=== PATIENT | male | born 1980 | race Caucasian/White ===

== ENCOUNTER 2016-11-18 15:54 | Emergency (ER) | payer OTHER ==
[~2016-11-18] VITALS: Ht 185.4 cm; Wt 70.5 kg
[2016-11-18 16:03] VITALS: BP 146/82; PULSE 74; RESP 16; O2SAT 100
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
[2016-11-18] MEDS ORDERED: TdaP Vaccine 0.5 mL Inj IM ONE (16:35)
[2016-11-18] MEDS ORDERED: HYDROcodone-APAP 5-325 mg Tablet PO ONE (16:35)
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
[2016-11-18] MEDS ORDERED: _oxyCODONE/APAP 5-325 mg Tablet PO PRN (20:45)
[2016-11-18] MEDS ORDERED: OXYC1TAB24 PO (20:49)
== END 2016-11-18 21:14 | disposition home or self-care (01) ==
LOC: SED 15:54
DX: S52.591A Other fractures of lower end of right radius, initial encounter for closed fracture (principal); S52.614A Nondisplaced fracture of right ulna styloid process, initial encounter for closed fracture; S51.012A Laceration without foreign body of left elbow, initial encounter; M25.511 Pain in right shoulder; V18.4XXA Pedal cycle driver injured in noncollision transport accident in traffic accident, initial encounter; Y93.55 Activity, bike riding; Y99.8 Other external cause status; Y92.410 Unspecified street and highway as the place of occurrence of the external cause; Z23 Encounter for immunization; Z88.5 Allergy status to narcotic agent

== ENCOUNTER → 2016-11-20 | Day surgery (SDC) | payer OTHER ==
[2016-11-20] VITALS (11 sets, daily range): BP systolic 127–185; BP diastolic 63–86; PULSE 52–85; RESP 13–18; O2SAT 98–100
[~2016-11-20] VITALS: Ht 185.4 cm; Wt 75.6 kg
[~2016-11-20] MED LIST: CeFAZolin 2 Gm/50 mL D5W Duplex Bag IV ONE; CeFAZolin Inj 2 GM in IV Premix 1 EACH IV ONE; Dexamethasone 4 mg/mL Inj IVPUSH PRN; Dexamethasone 4 mg/mL Inj ONE; EPHEDrine Sulfate 50 mg/mL Inj IVPUSH PRN; HYDROmorphone 1 mg/mL Inj IVPUSH PRN; Lactated Ringer's 1,000 ML IV ONE; Lactated Ringer's 1,000 ML IV SCH; Lactated Ringer's 500 ML IV PRN; Lidocaine 1%-Epi 1:100,000 20 mL Inj INFILTRATE ONE; MetoCLOpramide 5 mg/mL 2 mL Inj IVPUSH PRN; OXYC1TAB24 PO; Ondansetron 2 mg/mL 2 mL Inj IVPUSH PRN; Ondansetron 2 mg/mL 2 mL Inj ONE; Phenylephrine 10,000 mCg/mL Inj IVPUSH PRN; Propofol 10,000 mCg/mL 20 mL Inj ONE; fentaNYL-PF 50 mCg/mL 2 mL Inj ONE; oxyCODONE-Acetamin 5-325 mg Tablet PO PRN
--- NOTE | 2016-11-20 11:41 | PCM.HPANE ---
Patient Data Surgeon Admitting Provider: Attending Provider:Dakota Garcia DO Primary Care Physician:Mehul Avina MD Other Provider:[facility] Reason for Visit Right Broken Distal Radius Ht/WT & BMI Height (Feet): 6 Height (Inches): 1 Weight (Kilograms): 75.6 Body Mass Index 22.00, 22.00 Allergies Coded Allergies: codeine (Verified Allergy, Unknown, nausea, 11/18/16) Uncoded Allergies: CODINE (Allergy, Mild, rash, nausea, 04/17/12) Past Anesthesia History Anesthesia History: Denies:: Anesthesia Reactions, Fam Anesthesia Reaction, Fam Malignant Hypertherm, Malignant Hyperthermia Diabetes History Hx Diabetes?: No MRSA MRSA: No Medications Home Meds Incl Beta Eugenio: Yes Active Scripts oxyCODONE-Acetaminophen 5-325 mg 1 Each Tablet1-2 Tab PO Q6H PRN For Pain #20 TABLET Ref 0 Prov:Carrie Zhang MD 11/18/16 History History of ENT Problems?: No HEENT History: Denies:: Hearing Problem Denture Type: None Teeth Condition: Within Normal Limits (Chipped upper right incisor) Hx of Heart Problems?: No Cardiovascular History: Denies:: Chest Pain Congestive Heart Failure Hx of Respiratory Problem?: No Respiratory History: Denies:: Asthma Hx Neurologic Problems?: No Hx of GI Problems?: No Hx of Problems?: No Hx Musculoskeletal Problems?: Yes Musculoskeletal History: Positive for:: Musculoskeletal Trauma Hx of Psycho/Social Problems?: Yes Psycho Social History: Positive for:: Anxiety Hx Depression Hx Surgeries?: Yes (CLAVICLE FX) Hx Any Other Health Problems?: No Hx Diabetes: No Hx Alcohol Use: Yes (SOCIAL)Hx Substance Use: No Stop/Bang Treated for Sleep Apnea?: No Do You Have a CPAP Machine?: No S-Snoring: Do You Snore Loudly: No T-Tired: feel tired, fatigued: No O-Obsered: Observed not breath: No P-Blood Pressure: treated: No B- Body Mass Index > 35 kg/m2: No A- Age over 50: No N- Neck Large Circumference: No G- Gender Male: Yes Risk Assessment Category Category 1A: Patient has history of documented sleep apnea, and HAS NOT received any narcotic, sedative or anesthesia administration during this stay. Category 1B: Patient has history of documented sleep apnea, and HAS received any narcotic , sedative or anesthesia administration during this stay Category 2: Patient has SUSPECTED Obstructive Sleep Apnea, and HAS received any narcotic , sedative or anesthesia administration during this stay. Category 3: Patient has SUSPECTED Obstructive Sleep Apnea and HAS NOT received narcotic, sedative or anesthesia administration during this stay. Category 4: Outpatient in Procedural Areas with known sleep apnea or who screen positive for High Risk via the STOP/BANG questionnaire. Exam Exam Vital Signs Vital Signs Date Time Temp Pulse Resp B/P Pulse Ox O2 Delivery O2 Flow Rate FiO2 11/20/16 11:23 36.8 52 127/77 100 Room Air General Appearance: Alert HEENT/AIRWAY: MP 1 Lungs: Clear to Auscultation Meds/Labs/Diagnostics Admission Meds Current Medications Lactated Ringer's (Lr) 1,000 ml @ ud STK-MED ONCE IV Last administered on 11/20t 11:06; Start 11/20/16 at 11:06; Stop 11/20/16 at 11:07; Status DC Plan Impression Patient chart reviewed, patient interviewed and anesthestic plan with risks, benefits, and alternatives discussed, and informed consent obtained. NPO per Anesth. Guidelines: Yes ASA Physical Status: ASA1 Normal Healthy Anesthetic Plan: GA Bene/Risks/Altern/Consents: Yes HP Complete Prior to Induction: Yes Jonathon Sanchez MD Nov 20, 2016 11:41
[2016-11-20] MEDS: fentaNYL-PF 50 mCg/mL 2 mL Inj IVPUSH PRN ×2 (15:10→15:22)
--- NOTE | 2016-11-20 15:23 | PCM.ANEP1 ---
Post Anesthesia PACU Phase 1 Assessment Vital Signs Vital Signs Date Time Temp Pulse Resp B/P Pulse Ox O2 Delivery O2 Flow Rate FiO2 11/20/16 15:15 73 17 178/66 100 Room Air 11/20/16 15:10 72 13 165/78 99 Room Air 11/20/16 15:05 36.3 75 13 165/81 98 Room Air 11/20/16 15:00 79 17 151/71 98 Room Air 11/20/16 14:55 79 18 156/67 100 Room Air 11/20/16 14:50 77 15 144/72 100 Simple Mask 8 11/20/16 14:48 36.7 85 16 143/63 100 Simple Mask 8 11/20/16 11:23 36.8 52 127/77 100 Room Air Anesthetic Administered: GA Level of Alertness: Awake, talking Pain: Yes Pain Scale Score: 3 Nausea or Vomiting: No CV Function & Hydration Stable: Yes Airway Device: None Oxygen Delivery: Room Air Lungs: Clear to Auscultation PACU Phase 2 Assessment Complications: No Follow up Care: No Patient Instructions Provided: Yes Jonathon Sanchez MD Nov 20, 2016 15:23
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
== END | disposition home or self-care (01) ==
LOC: SAS 11:00
PROVIDERS: ATTEND Orthopaedic Surgery
DX: S52.571A Other intraarticular fracture of lower end of right radius, initial encounter for closed fracture (principal); S52.611A Displaced fracture of right ulna styloid process, initial encounter for closed fracture; V19.88XA Pedal cyclist (driver) (passenger) injured in other specified transport accidents, initial encounter; Y93.55 Activity, bike riding; Z87.891 Personal history of nicotine dependence
CPT/HCPCS: 25609; C1713; J0690; J1100; J1885; J2405; J2704; J3010; J7120